=== PATIENT | female | born 1980 | race American Indian/Alaskan Native ===

== ENCOUNTER 2018-06-03 13:08 | Emergency (ER) | payer MEDICAID ==
--- NOTE | 2018-06-03 13:16 | Emergency Department Report ---
Chief Complaint: Recheck/Abnormal Lab/Rx Stated Complaint: MED REFILL Time Seen by Provider: 06/03/18 13:13 - HPI History of Present Illness: This is a 38 y.o. female that presents to the ER for refills of suboxone. Patient states she was sent here from [facility] outpatient for 3 day supply. Patient reports last dose of suboxone will be today. PMH HTN, depression, anxiety - Exam Physical Exam: GENERAL: The patient is well looking, in no acute distress. HEENT: Atraumatic and normocephalic. Pupils are equal, round, reactive to light, and accommodation. Extraocular movements are intact. There is no icterus, cyanosis, or pallor of the conjunctivae. Tympanic membranes normal bilaterally. Nasal turbinates are clear without exudates. Sinuses nontender to percussion. Posterior pharynx is normal. No exudates are noted. CHEST: Air entry is adequate bilaterally with no rhonchi, and crackles. HEART: Sounds 1 and 2 are heard and are normal. Regular rate and rhythm, no tachycardic, murmurs, gallops, or rubs. ABDOMEN: Soft and nontender. Bowel sounds are present and normal. There is no hepatosplenomegaly. SKIN: warm, dry, intact, no rash EXTREMITIES: Without edema, cyanosis, or clubbing. MSE screening note: Focused history and physical exam performed. Due to findings the following was ordered: ED Medical Decision Making - Medical Decision Making Patient examined by me and stable. Patient denies SI/HI. No distress noted. Vitals stable. This is non-emergent and patient is stable. Instructed to follow up with [facility] or [facility] for refills of suboxone. Patient MSE back to [facility]. ED Disposition for MSE Clinical Impression: Encounter for medication refill Disposition: DC-01 TO HOME OR SELFCARE Is pt being admited?: No Does the pt Need Aspirin: No Condition: Stable Instructions: Polysubstance Abuse (ED) Referrals: [facility] [Outside] - 3-5 Days [facility], [Other] - 3-5 Days Forms: Work/School Release Form(ED) Time of Disposition: 13:41
[2018-06-03 13:18] VITALS: BP 131/67
== END 2018-06-03 13:53 | disposition home or self-care (01) ==
LOC: ED 13:08
DX: F41.9 Anxiety disorder, unspecified (principal); F32.9 Major depressive disorder, single episode, unspecified; Z76.0 Encounter for issue of repeat prescription